=== PATIENT | male | born 1960 | race Caucasian/White ===

== ENCOUNTER 2019-09-04 14:48 | Emergency (ER) | payer SELFPAY ==
[~2019-09-04] VITALS: Ht 162.5 cm; Wt 56.7 kg
[2019-09-04] MEDS ORDERED: VALTREX1000 MG PO (17:29)
[2019-09-04] MEDS ORDERED: PREDNISONE20 M1 PO (17:29)
[2019-09-04] MEDS ORDERED: TOBREX OPHTH O3.5 GM T (17:29)
== END 2019-09-04 17:39 | disposition home or self-care (01) ==
LOC: ED 14:48
DX: S05.01XA Injury of conjunctiva and corneal abrasion without foreign body, right eye, initial encounter (principal); G51.0 Bell's palsy; F17.200 Nicotine dependence, unspecified, uncomplicated; Z88.8 Allergy status to other drugs, medicaments and biological substances; X58.XXXA Exposure to other specified factors, initial encounter; Y93.89 Activity, other specified; Y92.89 Other specified places as the place of occurrence of the external cause; Y99.8 Other external cause status